=== PATIENT | female | born 1945 | race Caucasian/White ===

== ENCOUNTER 2021-05-20 14:44 | Inpatient (IN) ==
[2021-05-20] MEDS ORDERED: *HR* LORazepam 1 MG TABLET PO PRN (15:37)
[2021-05-20] MEDS ORDERED: *HR* HYDROcodone/Acet 5/325 mg TABLET PO PRN (15:37)
[2021-05-20] MEDS: Apixaban 5 MG TABLET PO SCH (20:21)
[2021-05-20] MEDS: Sacubitril/Valsartan 97/103 MG 1 TAB TABLET PO SCH (20:21)
[2021-05-21] MEDS: Furosemide 40 MG TABLET PO SCH ×3 (03:20→17:06)
[2021-05-21] MEDS: carvediloL 25 MG TABLET PO SCH ×3 (03:20→17:06)
[2021-05-21 06:14] LABS: Basophils % 0.6 %; Eosinophils # 0.4 K/mcL (0.0-0.6); Eosinophils % 5.6 %; Hematocrit 27.5 % (35.3-44.9); Hemoglobin 8.4 g/dL (11.5-15.4); Immature Granulocytes % 0.6 % (0-4); Lymphocytes # 0.9 K/mcL (0.6-4.6); Lymphocytes % 13.6 %; Mean Corpuscular HGB Conc 30.5 g/dL (31.6-35.5); Mean Corpuscular Volume 81.8 fL (83.0-100.0); Mean Platelet Volume 10.3 fL (9.4-12.4); Monocytes # 0.5 K/mcL (0.0-1.3); Neutrophils # 4.5 K/mcL (1.6-8.9); Platelet Count 222 K/mcL (140-400); Red Blood Count 3.36 M/mcL (3.82-4.97); Red Cell Distribution Width 16.4 % (11.5-14.5); Segmented Neutrophils % 71.6 %; White Blood Count 6.2 K/mcL (4.3-11.1)
[2021-05-21 06:34] LABS: Calcium 8.8 mg/dL (8.6-10.3); Potassium 4.3 mEq/L (3.5-5.1)
[2021-05-21] MEDS: Sacubitril/Valsartan 97/103 MG 1 TAB TABLET PO SCH ×2 (09:34→20:21)
[2021-05-21] MEDS: allopurinoL 300 MG TABLET PO SCH (09:34)
[2021-05-21] MEDS: Spironolactone 12.5 MG TABLET PO SCH (09:35)
[2021-05-21] MEDS: Apixaban 5 MG TABLET PO SCH ×2 (09:35→20:21)
[2021-05-21] MEDS: Benzonatate 100 MG CAPSULE PO PRN (20:21)
[2021-05-22] MEDS: Furosemide 40 MG TABLET PO SCH ×2 (07:47→16:47)
[2021-05-22] MEDS: Benzonatate 100 MG CAPSULE PO PRN ×2 (07:47→16:47)
[2021-05-22] MEDS: Spironolactone 12.5 MG TABLET PO SCH (07:47)
[2021-05-22] MEDS: Apixaban 5 MG TABLET PO SCH ×2 (07:47→20:28)
[2021-05-22] MEDS: carvediloL 25 MG TABLET PO SCH ×2 (07:47→16:47)
[2021-05-22] MEDS: levoFLOXacin 750 MG TABLET PO SCH (07:47)
[2021-05-22] MEDS: allopurinoL 300 MG TABLET PO SCH (07:48)
[2021-05-22] MEDS: Sacubitril/Valsartan 97/103 MG 1 TAB TABLET PO SCH ×2 (07:58→20:28)
[2021-05-22] MEDS: Acetaminophen 325 MG TABLET PO PRN (20:28)
[2021-05-23] MEDS: allopurinoL 300 MG TABLET PO SCH (08:18)
[2021-05-23] MEDS: Spironolactone 12.5 MG TABLET PO SCH (08:18)
[2021-05-23] MEDS: Furosemide 40 MG TABLET PO SCH ×2 (08:18→18:24)
[2021-05-23] MEDS: Acetaminophen 325 MG TABLET PO PRN (08:18)
[2021-05-23] MEDS: Benzonatate 100 MG CAPSULE PO PRN (08:19)
[2021-05-23] MEDS: Sacubitril/Valsartan 97/103 MG 1 TAB TABLET PO SCH ×2 (08:19→20:37)
[2021-05-23] MEDS: Apixaban 5 MG TABLET PO SCH ×2 (08:19→20:37)
[2021-05-23] MEDS: carvediloL 25 MG TABLET PO SCH ×2 (08:54→18:24)
[2021-05-24 06:50] VITALS: RESP 16
[2021-05-24] MEDS: Furosemide 40 MG TABLET PO SCH ×2 (08:48→16:12)
[2021-05-24] MEDS: Spironolactone 12.5 MG TABLET PO SCH (08:48)
[2021-05-24] MEDS: Sacubitril/Valsartan 97/103 MG 1 TAB TABLET PO SCH ×2 (08:48→20:17)
[2021-05-24] MEDS: carvediloL 25 MG TABLET PO SCH ×2 (08:49→16:12)
[2021-05-24] MEDS: levoFLOXacin 750 MG TABLET PO SCH (08:49)
[2021-05-24] MEDS: allopurinoL 300 MG TABLET PO SCH (08:49)
[2021-05-24] MEDS: Apixaban 5 MG TABLET PO SCH ×2 (08:49→20:17)
[2021-05-24 18:23] VITALS: TEMP 97.9
[2021-05-25 04:38] LABS: Basophils % 0.5 %; Eosinophils # 0.2 K/mcL (0.0-0.6); Eosinophils % 2.7 %; Hematocrit 26.9 % (35.3-44.9); Hemoglobin 8.3 g/dL (11.5-15.4); Immature Granulocytes % 0.5 % (0-4); Lymphocytes # 0.9 K/mcL (0.6-4.6); Lymphocytes % 11.9 %; Mean Corpuscular HGB Conc 30.9 g/dL (31.6-35.5); Mean Corpuscular Hemoglobin 25.1 pg (28.0-33.3); Mean Corpuscular Volume 81.3 fL (83.0-100.0); Mean Platelet Volume 9.5 fL (9.4-12.4); Monocytes # 0.4 K/mcL (0.0-1.3); Monocytes % 5.5 %; Neutrophils # 5.8 K/mcL (1.6-8.9); Platelet Count 233 K/mcL (140-400); Red Blood Count 3.31 M/mcL (3.82-4.97); Segmented Neutrophils % 78.9 %; White Blood Count 7.3 K/mcL (4.3-11.1)
[2021-05-25 04:53] LABS: Potassium 4.2 mEq/L (3.5-5.1)
[2021-05-25 07:28] VITALS: BP 111/59; PULSE 88; O2SAT 94
[2021-05-25] MEDS: Sacubitril/Valsartan 97/103 MG 1 TAB TABLET PO SCH (08:45)
[2021-05-25] MEDS: Furosemide 40 MG TABLET PO SCH (08:45)
[2021-05-25] MEDS: allopurinoL 300 MG TABLET PO SCH (08:45)
[2021-05-25] MEDS: Apixaban 5 MG TABLET PO SCH (08:45)
[2021-05-25] MEDS: carvediloL 25 MG TABLET PO SCH (08:45)
[2021-05-25] MEDS: Spironolactone 12.5 MG TABLET PO SCH (08:45)
== END 2021-05-25 15:33 | disposition home or self-care (01) | DRG 559 ==
LOC: INPGRE 18:34
PROVIDERS: ADMIT Family Medicine; ATTEND Family Medicine